=== PATIENT | female | born 1995 | race African-American/Black ===

== ENCOUNTER 2024-07-27 09:34 | Emergency (ER) | payer BC ==
--- NOTE | 2024-07-27 09:51 | ERPHSYRPT ---
- History of Present Illness Time Seen by Provider: 07/27/24 09:44 Source: patient Exam Limitations: no limitations Physician History: Patient hurt her knee yesterday. Is a twisting injury. It is in the left knee. Send the anterior knee and the medial collateral ligament. Walking makes it worse rest ice and elevate makes it better. No other trauma. She has no other complaints at this time. Allergies/Adverse Reactions: codeine Allergy (Verified 07/27/24 09:43) - Review of Systems Constitutional: No Symptoms Eyes: No Symptoms Neurological: No Symptoms All Other Systems: Reviewed and Negative - Past Medical History Pertinent Past Medical History: Yes Endocrine Medical History: Diabetes Type II - Past Surgical History Past Surgical History: Yes - Nursing Vital Signs Nursing Vital Signs: Initial Vital Signs Temperature 96.4 F 07/27/24 09:53 Pulse Rate 77 07/27/24 09:53 Respiratory Rate 16 07/27/24 09:53 Blood Pressure 171/102 07/27/24 09:53 O2 Sat by Pulse Oximetry 97 07/27/24 09:53 Pain Scale Pain Intensity 7 - Physical Exam General Appearance: no apparent distress Eyes, Ears, Nose, Throat Exam: normal ENT inspection Hips Exam: bilateral: non-tender, normal inspection, normal range of motion, no evidence of injury Legs Exam: bilateral leg: non-tender, normal inspection, normal range of motion, no evidence of injury Knees Exam: right knee: non-tender, normal inspection, normal range of motion, no evidence of injury, left knee: pain, soft tissue tenderness Ankle Exam: bilateral ankle: non-tender, normal inspection, normal range of motion, no evidence of injury - Course Nursing assessment & vital signs reviewed: Yes Ordered Tests: Active Orders 24 hr Category Date Time Status Crutches STAT Care 07/27/24 09:59 Active KNEE (3 VIEWS) Stat Exams 07/27/24 10:00 Taken - Progress Progress: unchanged Progress Note: Patient was stable throughout stay. On the differential was knee fracture, tibial plateau fracture, soft tissue strain of the knee. X-ray was done as interpreted by me. There is no acute findings. I am going to give the patient some [place] in addition to her ibuprofen. She was also given a set of crutches. She is discharged home in stable condition 07/27/24 10:22 Medical Desision Making - Diagnostic Testing Diagnostic test were ordered, analyzed, and reviewed by me: Yes Radiological Interpretation: Interpreted by me - Risk of complications Minimal Risk: Minimal risk of morbidity - Departure Departure Disposition: Home Clinical Impression: Knee sprain Condition: Stable Critical Care Time: No Instructions: Knee Sprain (DC) Prescriptions: Hydrocodone/Acetaminophen [Hydrocodone-Acetamin 5-325 mg] 1 tab PO Q6HPRN PRN #14 tablet MDD 4 PRN Reason: Pain
[2024-07-27 09:55] VITALS: RESP 16; TEMP 96.4
[2024-07-27] MEDS ORDERED: NORCO 5/325 MG PO ONE (10:32)
[2024-07-27 10:43] VITALS: BP 180/56; PULSE 78; O2SAT 98
--- NOTE | 2024-07-27 19:47 | XRAY ---
Indication: Trauma. Comparison: None 3 view left knee demonstrates minimal medial joint space narrowing, minimal lateral joint spurring, and nonspecific effusion. No other bony, articular, or soft tissue abnormalities.
== END 2024-07-27 10:43 | disposition home or self-care (01) ==
LOC: ED 09:34
DX: S83.92XA Sprain of unspecified site of left knee, initial encounter (principal); M25.562 Pain in left knee; X50.1XXA Overexertion from prolonged static or awkward postures, initial encounter
CPT/HCPCS: 73562; 99283